=== PATIENT | female | born 1965 | race Caucasian/White ===

== ENCOUNTER → 2019-01-15 | Outpatient (REF) | payer OTHER, SELFPAY | LOC: M LAB LCGH 11:42 | PROVIDERS: ATTEND Physician Assistant | DX: Z01.419 Encounter for gynecological examination (general) (routine) without abnormal findings (principal) ==

== ENCOUNTER 2023-05-11 09:56 | Day surgery (SDC) | payer OTHER ==
[~2023-05-11] VITALS: Ht 154.9 cm; Wt 78.7 kg
[~2023-05-11 09:56] MED LIST: ESTR1TAB PO; METAFIBER PO; NS 1,000 ML IV ONE
[2023-05-11] MEDS ORDERED: LIDOCAINE 2% 100MG/5ML SDV (FOR ANES.) As Ordered ONE (11:07)
[2023-05-11] MEDS ORDERED: propofoL 200 MG/20 ML VIAL As Ordered ONE (11:07)
[2023-05-11 11:20] VITALS: TEMP 98.1
[2023-05-11 11:40] VITALS: BP 132/83; O2SAT 99
== END 2023-05-11 11:45 | disposition home or self-care (01) ==
LOC: M OPP 09:56
PROVIDERS: ATTEND Internal Medicine Gastroenterology
DX: K63.5 Polyp of colon (principal); K57.30 Diverticulosis of large intestine without perforation or abscess without bleeding; K64.8 Other hemorrhoids; R93.3 Abnormal findings on diagnostic imaging of other parts of digestive tract